=== PATIENT | male | born 1970 | race Caucasian/White ===

== ENCOUNTER 2022-11-06 08:13 | Emergency (ER) | payer BC, SELFPAY ==
[2022-11-06 08:19] VITALS: BP 140/77; PULSE 97; RESP 18; TEMP 36.4; O2SAT 96
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
== END 2022-11-06 09:30 | disposition home or self-care (01) ==
PROVIDERS: Emergency Provider Emergency Medicine
DX: T38.3X1A Poisoning by insulin and oral hypoglycemic [antidiabetic] drugs, accidental (unintentional), initial encounter (principal); E11.649 Type 2 diabetes mellitus with hypoglycemia without coma; Z79.4 Long term (current) use of insulin
CPT/HCPCS: 99281